=== PATIENT | male | born 1950 | race Caucasian/White ===

== ENCOUNTER 2018-11-01 06:11 | Day surgery (SDC) ==
[2018-11-01] MEDS: BETADINE OPTH PREP OP PRN ×2 (06:25→07:05)
[2018-11-01] MEDS: TETRACAINE 0.5% UNIT-DOSE OP PRN ×3 (06:25→07:13)
[2018-11-01] MEDS: CYCLOGYL 2% OPTH OP PRN ×3 (06:26→06:36)
[2018-11-01] MEDS ORDERED: LIDOCAINE 1% 20 ML MDV ID STA (06:49)
[2018-11-01] MEDS ORDERED: BSS WITH EPINEPHRINE OP ONE (06:49)
[2018-11-01] MEDS ORDERED: DEX-MOXI-KETOR OPTH INJ 1/0.5/0.4 MG/ML IO ONE (06:49)
[2018-11-01] MEDS ORDERED: LIDOCAINE 1%/PHENYLEPHRINE 1.5% BSS (SURGERY) INTRAOCULA ONE (06:49)
[2018-11-01] MEDS ORDERED: ZOFRAN 4 MG/2 ML IVP ONE (06:49)
[2018-11-01 06:53] VITALS: TEMP 98.7
[2018-11-01] MEDS ORDERED: ZOFRAN 4 MG/2 ML ONE (07:06)
[2018-11-01] MEDS ORDERED: VERSED ONE (07:06)
[2018-11-01] MEDS ORDERED: SUBLIMAZE ONE (07:06)
[2018-11-01 07:49] VITALS: BP 118/42
== END 2018-11-01 08:10 | disposition home or self-care (01) ==
LOC: SURG 06:11
PROVIDERS: ATTEND Ophthalmology
DX: H25.812 Combined forms of age-related cataract, left eye (principal)

== ENCOUNTER 2018-11-14 07:07 | Day surgery (SDC) ==
[2018-11-14] MEDS: BSS WITH EPINEPHRINE OP ONE ×2 (07:26→08:27)
[2018-11-14] MEDS: CYCLOGYL 2% OPTH OP PRN ×3 (07:27→07:37)
[2018-11-14] MEDS ORDERED: LIDOCAINE 1% 20 ML MDV ID STA (08:00)
[2018-11-14] MEDS ORDERED: BETADINE OPTH PREP OP PRN ×2 (08:04→13:40)
[2018-11-14] MEDS ORDERED: ZOFRAN 4 MG/2 ML IVP ONE (08:04)
[2018-11-14] MEDS ORDERED: CYCLOGYL 2% OPTH OP PRN (08:04)
[2018-11-14] MEDS ORDERED: TETRACAINE 0.5% UNIT-DOSE OP PRN ×2 (08:04→13:40)
[2018-11-14] MEDS: LIDOCAINE 1%/PHENYLEPHRINE 1.5% BSS (SURGERY) INTRAOCULA ONE ×2 (08:14→08:27)
[2018-11-14] MEDS: DEX-MOXI-KETOR OPTH INJ 1/0.5/0.4 MG/ML IO ONE ×2 (08:15→08:27)
[2018-11-14] MEDS ORDERED: SUBLIMAZE ONE (08:22)
[2018-11-14] MEDS ORDERED: ROBINOL ONE (08:22)
[2018-11-14] MEDS ORDERED: ZOFRAN 4 MG/2 ML ONE (08:22)
[2018-11-14] MEDS ORDERED: VERSED ONE (08:22)
[2018-11-14 13:00] VITALS: BP 158/66; TEMP 97.8
== END 2018-11-14 09:00 | disposition home or self-care (01) ==
LOC: SURG 07:07
PROVIDERS: ATTEND Ophthalmology
DX: H25.811 Combined forms of age-related cataract, right eye (principal)